=== PATIENT | male | born 1955 | race American Indian/Alaskan Native ===

== ENCOUNTER 2016-05-26 09:29 | Day surgery (SDC) | payer OTHER ==
[2016-05-26] MEDS ORDERED: NACL 0.9% 500 ML 500 ML IV SCH (11:00)
[2016-05-26] MEDS ORDERED: TRIDIL DRIP 50MG/250ML 0 MG/0 ML BOTTLE ONE (11:09)
[2016-05-26] MEDS ORDERED: NITROSTAT SL ONE (11:20)
[2016-05-26] MEDS ORDERED: ATROPINE 0.1% (CARDIAC) ONE (11:20)
[2016-05-26] MEDS ORDERED: LOPRESSOR IV ONE (11:50)
[2016-05-26] MEDS ORDERED: CORDARONE 150 MG in D5W 97 ML IV ONE (12:02)
[2016-05-26] MEDS ORDERED: DULCOLAX PR PRN (12:10)
[2016-05-26] MEDS ORDERED: ZOFRAN IV PRN (12:10)
[2016-05-26] MEDS ORDERED: TYLENOL PO PRN (12:10)
[2016-05-26] MEDS ORDERED: MILK OF MAGNESIA PO PRN (12:10)
--- NOTE | 2016-05-26 12:38 | Short Stay Summary ---
Short Stay Documentation Date of service: 05/26/16 - History H&P: obtained from office - Allergies and Medications Current Medications: Allergies No Known Allergies Allergy (Unverified 05/26/16 09:29) Active Medications Acetaminophen (Tylenol) 650 mg PO Q4H PRN PRN Reason: Pain MILD(1-3)/Fever >100.5/JOAQUIN Bisacodyl (Dulcolax) 10 mg NV QDAY PRN PRN Reason: Constipation unrelieved by MOM Sodium Chloride (Nacl 0.9% 500 Ml) 500 mls @ 50 mls/hr IV DIRECT GENNY Stop: 05/26/16 20:59 Last Admin: 05/26/16 10:49 Dose: 50 mls/hr Amiodarone HCl 900 mg/ (Dextrose) 500 mls @ 33.33 mls/hr IV DIRECT GENNY; 1 MG /MIN PRN Reason: Protocol Magnesium Hydroxide (Milk Of Magnesia) 30 ml PO Q4H PRN PRN Reason: Constipation Ondansetron HCl (Zofran) 4 mg IV Q8H PRN PRN Reason: N/V unrelieved by Reglan - Physical exam General appearance: no acute distress Integumentary: no rash HEENT: Atraumatic Lungs: Clear to auscultation Breasts: deferred Heart: Regular rate Gastrointestinal: normal Male Genitourinary: deferred Female Genitourinary: deferred Rectal Exam: deferred Extremities: no ischemia Neurological: Normal gait - Brief post op/procedure progress note Date of procedure: 05/26/16 Pre-op diagnosis: Syncope Post-op diagnosis: same Procedure: TTT Anesthesia: none Findings: cardioinhibitory response Surgeon: KIMBERLY WELLS Estimated blood loss: none Pathology: none Condition: stable - Hospital course Hospital course: Uneventful - Disposition Condition at discharge: Good Disposition: DISCHARGED TO HOME OR SELFCARE Short Stay Discharge Plan Activity: advance as tolerated Weight Bearing Status: Weight Bear as Tolerated Diet: regular Follow up with: LES PENA MD [Primary Care Provider] - 7 Days Prescriptions: Metoprolol Xl [Metoprolol SUCCINATE ER TAB] 50 mg PO QDAY #30 tablet
[2016-05-26] MEDS ORDERED: CORDARONE 900 MG in D5W 482 ML IV SCH (13:00)
[2016-05-26 13:28] VITALS: BP 112/67
--- NOTE | 2016-05-26 13:42 | Procedure Note ---
TILT TABLE TEST ORDERING PHYSICIAN: Omid Escudero MD INDICATION FOR PROCEDURE: Syncope. DESCRIPTION OF PROCEDURE: After obtaining written consent, the patient was brought to the [facility] area. The patient was secured to the tilt table test. The patient's blood pressure supine was 145/98 with a heart rate of 66, sinus rhythm. The patient was then tilted to 85 degrees from horizontal and maintained in this position for a total of 10 minutes. His blood pressure at the end of these 10 minutes was 141/97 with a heart rate of 95 beats per minute. No episodes of dizziness recorded. Subsequently, the patient received 0.4 mg of sublingual nitroglycerin. The patient was observed for another 10 minutes. 8 minutes after the nitroglycerin was administered, the patient started feeling sweaty, hot, and dizzy. His heart rate dropped suddenly from 127-60 with evidence of a junctional bradycardia. The patient did lose consciousness. His lowest recorded blood pressure was 94/47. The patient was tilted back to horizontal. The patient did regain consciousness spontaneously. The patient did develop evidence of atrial fibrillation with rapid ventricular rate. A 6 mg adenosine IV did not break the AFib and this was also followed by 5 mg of IV Lopressor, which slowed down the heart rate, but it did not break the atrial fibrillation. His heart rate at that time was 99 beats per minute with a blood pressure of 125/70. The patient was conscious with no complaints. A 12-lead EKG did document evidence of new onset atrial fibrillation. IMPRESSION: A positive tilt table test with a significant cardioinhibitory response. The patient did develop atrial fibrillation with rapid ventricular rate at the end of this test. IV Lopressor and IV adenosine were not successful in breaking the arrhythmia. The patient will therefore be admitted for IV amiodarone infusion. IV ibutilide is not available at this institution. RECOMMENDATION: The patient will be admitted for IV amiodarone in order to control his atrial fibrillation. If unsuccessful in controlling it pharmacologically, the patient will be recommended for electrical cardioversion. JOB# [id number] AMBROSE/JOE
== END 2016-05-26 14:05 | disposition home or self-care (01) ==
LOC: OPU 09:29
PROVIDERS: ATTEND Internal Medicine Cardiovascular Disease
DX: R55 Syncope and collapse (principal); I10 Essential (primary) hypertension; Z82.49 Family history of ischemic heart disease and other diseases of the circulatory system
CPT/HCPCS: 93005; 93010; 93660; J0153; J0282; J7040; J7060; J0461